=== PATIENT | female | born 1990 | race Caucasian/White ===

== ENCOUNTER 2019-10-22 09:05 | Outpatient (RCR) | payer OTHER, SELFPAY ==
[2019-10-22 09:37] VITALS: BP 124/78; PULSE 104
== END 2020-01-06 09:51 | disposition home or self-care (01) ==
LOC: ANHOBOP 09:05
PROVIDERS: PCP Family Medicine; Visit Provider Obstetrics & Gynecology
DX: O36.8120 Decreased fetal movements, second trimester, not applicable or unspecified (principal); O30.002 Twin pregnancy, unspecified number of placenta and unspecified number of amniotic sacs, second trimester; Z3A.23 23 weeks gestation of pregnancy
CPT/HCPCS: 59025

== ENCOUNTER 2019-12-23 11:39 | Outpatient (RCR) | payer OTHER, SELFPAY ==
[2019-12-17 10:42] VITALS: BP 140/80; PULSE 108
[2019-12-23 12:20] VITALS: BP 135/96; PULSE 109
== END 2020-01-06 09:51 | disposition home or self-care (01) ==
LOC: ANHOBOP 11:39
PROVIDERS: PCP Family Medicine; Visit Provider Obstetrics & Gynecology
DX: O30.003 Twin pregnancy, unspecified number of placenta and unspecified number of amniotic sacs, third trimester (principal); Z3A.31 31 weeks gestation of pregnancy; Z3A.32 32 weeks gestation of pregnancy
CPT/HCPCS: 59025

== ENCOUNTER 2019-12-26 19:12 | Inpatient (IN) | payer OTHER, SELFPAY ==
--- NOTE | ~2019-12-26 | XR_ITS ---
XR chest 2V INDICATION: Shortness of breath, cough and fever TECHNIQUE: 2 view chest. FINDINGS: No prior studies for comparison. There is mild bilateral interstitial prominence and peribronchial cuffing. There is no focal consoli dation, pleural effusion, or pneumothorax. The cardiomediastinal silhouette is normal.] IMPRESSION: 1. Findings most consistent with bronchiolitis versus an atypical or viral pneumonia. Reviewed, dictated and finalized at location A. IMPRESSION: 1. Findings most consistent with bronchiolitis versus an atypical or viral pne [facility].
--- NOTE | ~2019-12-26 | CT_ITS ---
EXAMINATION: CTA chest PE protocol DATE: 12/26/2019 22:31 CDT INDICATION: Shortness of breath. Cough and fever TECHNIQUE: Computed tomographic angiography (CTA) of the chest was performed with 100 mL Omnipaque-35 0 intravenous contrast. The dose-length product was 398.26 mGy-cm. Maximum intensity projection 3D-re constructions of the aorta and other arteries were constructed by the technologist on a separate work station. COMPARISON: None. FINDINGS: The study is technically limited due to timing of contrast bolus and motion artifact. Evalu ation of the lower lobe segmental and subsegmental pulmonary arteries limited. No definite pulmonary embolism identified. There are moderate bilateral pleural effusions with underlying compressive atele ctasis. Heart size is normal. There are multiple patchy groundglass opacities throughout both lungs, most likely infectious. No significant pericardial effusion. No pneumothorax. No acute osseous abnorm ality. IMPRESSION: 1. Patchy groundglass opacities in both lungs, consistent with pneumonia. 2: Moderate bilateral pleural effusions with underlying compressive atelectasis. 3: No large central pulmonary embolism. Limited evaluation of lower lobe segmental and subsegmental pulmonary arteries due to contrast bolus timing and motion. Reviewed, dictated and finalized at location A. IMPRESSION: 1. Patchy groundglass opacities in both lungs, consistent with pneumonia. 2: Moderate bilateral pleural effusions with underlying compressive atelectasi s. 3: No large central pulmonary embolism. Limited evaluation of lower lobe segme ntal and subsegmental pulmonary arteries due to contrast bolus timing and motio n.
[2019-12-26 19:20] VITALS: BP 155/99; PULSE 139; RESP 20; TEMP 38.1; O2SAT 96
[2019-12-26 19:49] VITALS: RESP 20; O2SAT 96
--- NOTE | 2019-12-26 19:59 | ED.FEVER ---
HPI - Fever General Chief Complaint: Fever Stated Complaint: fever, Time Seen by Provider: 12/26/19 19:36 Source: patient Mode of arrival: wheelchair Limitations: no limitations History of Present Illness HPI Narrative: A 29 y/o female pt that is 33 weeks with her first , presents to the ED after being seen in OB, with c/o SOB x 1 month that is worse today. Pt notes that walking short distances worsens her SOB and she notices audible wheezing. Pt notes increased SOB when lying supine. She states that she has congestion and coughing at night when sleeping, but notes that she has had this throughout her entire . She has a fever of 100.5F in the ED, but denies having sore throat, increased leg swelling, ear pressure, or ear pain. Pt notes a hx of Hyperemesis gravidarum and states she had a PICC line placed for 3 months and was unable to sit up. She states that she was Dx with bronchitis and prescribed Zithromax Z-Sonny within the last few months. Pt notes that she is able to feel both babies move, and denies leaking any vaginal fluid. Her OBGYN is Dr. Shantel Luciano MD elicited complaint: fever and other (SOB) Onset (ago): month(s) (1) Measured temperature: 100.5 F Context: other (Hyperemesis gravidarum) Exacerbating factors: at night and other (lying supine) Associated symptoms: cough (at night), shortness of breath and other (congestion at night) Related Data Allergies Allergy/AdvReac Type Severity Reaction Status Date / Time Penicillins Allergy Unknown Rash Verified 12/26/19 19:47 Pertussis Vaccines AdvReac Severe Fever Verified 12/26/19 19:48 Review of Systems Review of Systems: All systems reviewed & are unremarkable except as noted in HPI and below Constitutional: Constitutional: Reports fever(s) (100.5F) ENT: Denies otalgia, Denies sore throat and Denies other (ear pressure) Cardiovascular: Cardiovascular: Denies pedal edema, Denies leg edema and Reports orthopnea Respiratory: Respiratory: Reports chest congestion (at night), Reports cough (at night), Reports dyspnea, Reports dyspnea on exertion and Reports wheezing (when walking ) PMFSH Past Medical History Medical History (Updated 12/26/19 @ 23:58 by Zander Leroy MD) Hyperemesis gravidarum Surgical History Surgical History (Updated 12/26/19 @ 21:30 by Micheal WebbRUSBASE) No significant past surgical history Family History Family History (Updated 09/09/18 @ 15:24 by DOCTOR UNKNOWN) Grandparent Diabetes mellitus Family history of cardiovascular disease Father Family history of hypercholesterolemia Depression Sibling Depression Other Family history of malignant neoplasm of breast Social History Social History Smoking status: Never smoker Alcohol intake: current Gender identity (if verbalized by the patient): Female Exam Narrative: Exam Narrative: GENERAL: ill-appearing, well-nourished, and in mild distress. HEAD: Normocephalic, atraumatic. ENT: Mucous membranes moist. No pharyngeal erythema or tonsillar exudate. NECK: Supple. CHEST: Tachypnea with splinting while breathing and frequent coughing. Basilar Rales that are diminished. Occasional scattered wheezing. HEART: Tachycardic. Normal peripheral pulses. ABDOMEN: Soft, nontender, nondistended. EXTREMITIES: Normal range of motion. No edema in lower extremities. 1+ edema right upper extremity. SKIN: Warm, dry, no rash. NEURO: Alert and oriented x3. Course Course Emergency Course: Patient informed of diagnosis and treatment plan. Respirations improving with hour-long nebulizer treatment. Patient still has elevated blood pressures which OB is been made aware of. Will arrange for monitoring as well. Tylenol for fever. Patient receiving IV potassium for hypokalemia. Consultations Consultation #1: Discussed case with SHASHANK Anne electrical high tension tester. Suggest CTA, starting pt on IV antibiotics
[2019-12-26 20:21] LABS: INR 0.9; Prothrombin Time 12.3 Seconds (11.1-14.7)
[2019-12-26 20:26] LABS: Alanine Aminotransferase 13 U/L (4-35); Albumin Level 3.1 g/dL (3.5-5.1); Alkaline Phosphatase 108 U/L (38-126); Aspartate Amino Transferase 22 U/L (14-36); Bilirubin,Total 0.6 mg/dL (0.2-1.3); Blood Urea Nitrogen < 2 mg/dL (7-17); Calcium 8.9 mg/dL (8.4-10.2); Carbon Dioxide 20 mmol/L (22-30); Chloride 109 mmol/L (98-107); Estimated CRCL calculation 159 ml/min; Estimated Glomerular Filt Rate > 60; Glucose 78 mg/dL (65-105); Partial Thromboplastin Time < 20.0 SECONDS (22.3-36.8); Potassium 2.7 mmol/L (3.4-5.0); Sodium 134 mmol/L (137-145)
--- NOTE | 2019-12-26 20:26 | PC.NURSE ---
Called lab to add on BNP
[2019-12-26 20:38] LABS: Basophils Absolute Auto 0.1 K/mm3 (0.0-0.1); Basophils Percent Auto 0.3 % (0.2-1.2); Eosinophils Absolute Auto 0.1 K/mm3 (0-0.3); Eosinophils Percent Auto 0.5 % (0-4.4); Hemoglobin 9.4 g/dL (12.0-15.0); Immature Granulocyte Absolute 0.14 K/mm3 (0.00-0.031); Immature Granulocyte Percent A 0.8 % (0-0.5); Lymphocytes Absolute Auto 2.73 K/mm3 (0.9-3.2); Mean Corpuscular HGB Conc 34.8 g/dl (32-36); Mean Corpuscular Hemoglobin 30.6 pg (26-34); Mean Corpuscular Volume 87.9 fl (80-100); Mean Platelet Volume 10.8 fl (7.4-10.4); Monocytes Absolute Auto 1.5 K/mm3 (0.1-0.6); Monocytes Percent Auto 8.6 % (2.6-8.5); Neutrophils Absolute Auto 12.6 K/mm3 (1.3-6.7); Neutrophils Percent Auto 73.8 % (45.5-73.1); Platelet Count Result 198 k/mm3 (150-375); Red Blood Count 3.07 M/mm3 (4.2-5.4); Red Cell Distribution Width 13.7 % (11.5-14.5); White Blood Count 17.1 K/mm3 (4.5-10.0)
[2019-12-26 20:43] LABS: NT Pro B Type Natriuretic Pept 1960 PG/ML (5-100)
[2019-12-26 21:03] VITALS: PULSE 126; RESP 22; O2SAT 98
[2019-12-26] MEDS: IPRATROPIUM BR 0.02% INH SOLN 0.5 MG/2.5 ML VIAL 1 MG INHALATION (21:03)
[2019-12-26] MEDS: ALBUTEROL SULFATE NEB 2.5 MG/0.5 ML INH 10 MG INHALATION (21:03)
[2019-12-26 21:10] VITALS: BP 161/113; PULSE 115; RESP 20; O2SAT 100
--- NOTE | 2019-12-26 21:50 | PC.NURSE ---
lr not given per md verbal request
[2019-12-26 21:51] VITALS: BP 152/95; PULSE 125; RESP 24; O2SAT 100
[2019-12-26 21:57] VITALS: PULSE 122; RESP 24
[2019-12-26] MEDS: SODIUM CHLORIDE 0.9% IV 1,000 ML 30 ML IV CONT (23:03)
[2019-12-27] VITALS (19 sets, daily range): BP systolic 135–150; BP diastolic 75–108; PULSE 112–152; RESP 18–24; TEMP 36.7–37.2; O2SAT 96–99; BMI 34.7
--- NOTE | 2019-12-27 | ECHO_ITS ---
Patient Info Name: Mary Leong Age: 29 years : 1990 Gender: Female Ht: 66 in Wt: 204 lbs BSA: 2.11 m2 HR: 117 bpm BP: 136 / 75 mmHg Technical Quality: Good Exam Date: 12/27/2019 2:02 PM Exam Location: [facility] Pulmonary Exam Room: 303 Patient Status: Inpatient Admit Date: 12/26/2019 Staff Ordering Physician: Donald Barnes MD Cabin Equipment Supervisor: Bree Walls RDCS Attending Provider: Donald Barnes MD Exam Type: CA echo doppler color flow Study Info Indications - elevated BNP 33 WEEKS GESTATION Complete two-dimensional, color flow and Doppler transthoracic echocardiogram is performed. Summary 1. The left ventricle is mildly dilated (5.7-6.2 cm). There is moderate to moderately severe global hypokinesis. The measured ejection fraction is 47%, though visually it appears to be in the range of 35-40%. No segmental wall motion abnormalities. Normal wall thickness. Borderline criteria for diastolic dysfunction. 2. Left atrial chamber dimension is moderately enlarged. 3. There is mild mitral valve regurgitation. 4. Mild pulmonary hypertension, estimated pulmonary arterial systolic pressure is 40 mmHg. 5. There is a trivial posterior pericardial effusion, 0.5 cm thick. 6. Normal sinus rhythm. Left Ventricle Left ventricular chamber dimension is mildly enlarged. Left ventricular systolic function is moderately reduced, estimated at 35-40%. There is no increased left ventricular wall thickness. Left ventricular septal wall motion is normal. The left ventricular diastolic function is abnormal. The left ventricle is mildly dilated (5.7-6.2 cm). There is moderate to moderately severe global hypokinesis. The measured ejection fraction is 47%, though visually it appears to be in the range of 35-40%. No segmental wall motion abnormalities. Normal wall thickness. Borderline criteria for diastolic dysfunction. Right Ventricle Right ventricular chamber dimension is normal. Right ventricular systolic function is normal. Left Atria Left atrial chamber dimension is moderately enlarged. Right Atria Right atrial chamber dimension is normal. Aortic Valve The aortic valve is trileaflet. There is no aortic valve sclerosis. There is no aortic valve stenosis. There is no aortic valve regurgitation. Pulmonic Valve The pulmonic valve is normal. There is no pulmonic valve stenosis. There is no pulmonic regurgitation. Mitral Valve The mitral valve has normal leaflets. There is no mitral valve stenosis. There is mild mitral valve regurgitation. Tricuspid Valve The tricuspid valve leaflets are normal. There is no significant tricuspid valve stenosis. There is trace tricuspid valve regurgitation. Mild pulmonary hypertension, estimated pulmonary arterial systolic pressure is 40 mmHg. Pericardium/Pleural The pericardium appears normal. There is a trivial posterior pericardial effusion, 0.5 cm thick. Inferior Vena Cava Normal inferior vena cava with >50% collapse upon inspiration consistent with Empty right atrial pressure, 10 mmHg. Aorta The aortic root size at the sinus of Valsalva is normal. The prox ascending aorta size is normal. Left Ventricular Outflow Tract Name Value Normal LVOT 2D
[2019-12-27] MEDS: ONDANSETRON INJ 4 MG/2 ML VIAL IV PUSH ×4 (00:32→20:24)
--- NOTE | 2019-12-27 00:39 | ADMGEN ---
This patient, Mary Leong, was admitted to [facility] Surg Room 303-01. Patient/family oriented to hospital policies and general routines including ID bracelet, bed and alarms, visiting hours, pain management, procedures, bathroom and other care routines, personal items, smoking policy, room service/diet, and visiting hours. Valuables list has been completed. Information on how to activate the Rapid Response Team has been discussed. Patient/Family are encouraged to report perceived risks to care and to ask questions if they do not understand what they are told or what they should do.
[2019-12-27 01:18] LABS: Add Urine Microscopic? YES; Appearance Urine Clear (Clear); Bilirubin Urine Negative (Negative); Blood Urine Negative (Negative); Color Urine Yellow (Yellow); Glucose Urine UA Negative (Negative); Ketones Urine 2+ mg/dL (Negative); Leukocyte Esterase Ur Negative LEU/UL (Negative); Mucus Urine Rare /lpf; Nitrate Urine Negative (Negative); Protein Urine 1+ mg/dL (Negative); RBC Urine 0-2 /hpf (0-2); Squamous Epithelial Cell Urine Occasional /hpf (Few); Urobilinogen Urine Negative mg/dL (<2.0); WBC Urine 0-3 /hpf
--- NOTE | 2019-12-27 02:21 | PC.NURSE ---
LATE NOTE- 0001 PT'S VITAL SIGNS 28 RESP, 120 HEART RATE, 158/92 BP-ROCEPHIN INFUSED, ZITHROMAX STARTED. IV SITES BILATERALLY INTACT WNL
[2019-12-27] MEDS: IPRATROPIUM BR 0.02% INH SOLN 0.5 MG/2.5 ML VIAL INHALATION ×4 (02:59→20:22)
[2019-12-27] MEDS: ALBUTEROL SULFATE NEB 2.5 MG/0.5 ML INH 5 MG INHALATION ×2 (02:59→08:13)
--- NOTE | 2019-12-27 03:38 | PC.NURSE ---
1250- Nurse from 3rd floor called to have heart tones doppled. Arrived on unit and doppled FHT for Baby A- 150s with accels to 180s, Baby B-130s with accels to 150s. Nurse informed of FHTs.
--- NOTE | 2019-12-27 08:23 | PM.IMHP ---
H&P: HPI History of Present Illness Chief complaint: PNEUMONIA,ELEVATED BLOOD PRESSURE READING,PLEURAL Narrative: Mary Leong is a 29 year old female at 33w with twin gestation who presented with acute onset SOB and fever. Pt states she has had SOB for the past month or so but it became worse yesterday morning. She denies any tactile fevers at home. She reports a dry cough. She denies any CP. She denies any sick contacts or recent travel. She endorses good movement x2. She denies any contractions, vaginal bleeding or leakage of fluid. Pt was evaluated in the ER last night and CXR was suggestive of pneumonia. CTPA was performed which was negative for PE. Pt states her symptoms have mildly improved this AM. She still reports a cough but states her SOB has improved. Review of Systems Constitutional: Constitutional: Reports as per HPI Cardiovascular: Cardiovascular: Reports as per HPI Respiratory: Respiratory: Reports as per HPI Gastrointestinal: Gastrointestinal: Denies abdominal pain, Denies constipation, Denies diarrhea, Denies nausea and Denies vomiting Genitourinary: Genitourinary: Reports no additional female genitourinary complaints [facility] Past Medical History Medical History (Updated 12/27/19 @ 09:07 by Donald Barnes MD) Hyperemesis gravidarum Surgical History Surgical History (Updated 12/26/19 @ 21:30 by Micheal WebbBiorasis) No significant past surgical history Family History Family History (Updated 09/09/18 @ 15:24 by DOCTOR UNKNOWN) Grandparent Diabetes mellitus Family history of cardiovascular disease Father Family history of hypercholesterolemia Depression Sibling Depression Other Family history of malignant neoplasm of breast Social History Social History Smoking status: Never smoker Alcohol intake: former Drinks per week: 1 Substance use: never Gender identity (if verbalized by the patient): Female Spiritual care concerns: No Agree to blood products: Yes Meds Home Medications and Allergies Home Medications Medication Instructions Recorded Confirmed Type cetirizine [Zyrtec] 10 mg PO DAILY 12/27/19 12/27/19 History famotidine [Heartburn Relief 10 mg PO BID 12/27/19 12/27/19 History (famotidine)] ondansetron 4 mg TRANSLINGUAL Q6-8H PRN 12/27/19 12/27/19 History Allergies Allergy/AdvReac Type Severity Reaction Status Date / Time Penicillins Allergy Unknown Rash Verified 12/26/19 19:47 Pertussis Vaccines AdvReac Severe Fever Verified 12/26/19 19:48 Vital Signs Vital Signs - 24 hr 12/26/19 19:20 12/26/19 19:49 12/26/19 21:03 Temperature 38.1 C H Pulse Rate 139 H 126 H Respiratory Rate 20 20 22 H Blood Pressure 155/99 H Pulse Oximetry 96 96 98 12/26/19 21:10 12/26/19 21:51 12/26/19 21:57 Temperature Pulse Rate 115 H 125 H 122 H Respiratory Rate 20 24 H 24 H Blood Pressure 161/113 H 152/95 H Pulse Oximetry 100 100 12/27/19 00:15 12/27/19 02:59 12/27/19 03:10 Temperature 36.7 C Pulse Rate 141 H 129 H 125 H Respiratory Rate 24 H 20 20 Blood Pressure 149/108 H 150/90 H Pulse Oximetry 99 12/27/19 04:00 12/27/19 06:00 12/27/19 08:13 Temperature 36.7 C Pulse Rate 125 H 129 H 135 H Respiratory Rate 22 H 18 Blood Pressure 135/75 Pulse Oximetry 96 Exam Const: General: comfortable and no acute distress Eyes: General: appearance normal, both eyes and all related structures Neck: Neck: no JVD Resp: Auscultation: rales, wheezes and diminished lung sounds Cardio: Rate: tachycardic GI: GI Palp: Yes Soft to palpation and No Tenderness to palpation present (GI) Auscultation: normal bowel sounds Other: Gravid, fundal height equal to dates Skin: General skin exam: normal color Extrem: General: normal to inspection Psych: Mental Status: mental status grossly normal Affect: normal affect H&P: Results Labs Labs: Short CBC
[2019-12-27 10:47] LABS: Basophils Percent Auto 0.1 % (0.2-1.2); Eosinophils Percent Auto 0.2 % (0-4.4); Hematocrit 25.5 % (37.0-47.0); Hemoglobin 8.8 g/dL (12.0-15.0); Immature Granulocyte Absolute 0.18 K/mm3 (0.00-0.031); Lymphocytes Absolute Auto 2.15 K/mm3 (0.9-3.2); Lymphocytes Percent Auto 12.3 % (18.3-44.2); Mean Corpuscular HGB Conc 34.5 g/dl (32-36); Mean Corpuscular Hemoglobin 30.1 pg (26-34); Mean Corpuscular Volume 87.3 fl (80-100); Mean Platelet Volume 10.9 fl (7.4-10.4); Monocytes Absolute Auto 1.4 K/mm3 (0.1-0.6); Monocytes Percent Auto 8.2 % (2.6-8.5); Neutrophils Absolute Auto 13.7 K/mm3 (1.3-6.7); Neutrophils Percent Auto 78.2 % (45.5-73.1); Platelet Count Result 202 k/mm3 (150-375); Red Blood Count 2.92 M/mm3 (4.2-5.4); Red Cell Distribution Width 13.9 % (11.5-14.5); White Blood Count 17.5 K/mm3 (4.5-10.0)
[2019-12-27 10:58] LABS: Alanine Aminotransferase 15 U/L (4-35); Alkaline Phosphatase 101 U/L (38-126); Aspartate Amino Transferase 22 U/L (14-36); Bilirubin,Total 0.4 mg/dL (0.2-1.3); Blood Urea Nitrogen 3 mg/dL (7-17); Calcium 9.1 mg/dL (8.4-10.2); Carbon Dioxide 20 mmol/L (22-30); Chloride 108 mmol/L (98-107); Estimated CRCL calculation 163 ml/min; Estimated Glomerular Filt Rate > 60; Glucose 93 mg/dL (65-105); Potassium 2.9 mmol/L (3.4-5.0); Sodium 134 mmol/L (137-145)
[2019-12-27 11:07] LABS: NT Pro B Type Natriuretic Pept 1750 PG/ML (5-100)
[2019-12-27] MEDS: METOPROLOL SUCCINATE EXT REL 50 MG TABCR PO (13:35)
--- NOTE | 2019-12-27 13:48 | PM.IMCN ---
Assessment and Plan Assessment and plan (1) Community acquired pneumonia: Qualifiers: Laterality: unspecified laterality Qualified Code(s): J18.9 - Pneumonia, unspecified organism Code(s): J18.9 - Pneumonia, unspecified organism Status: Acute Assessment and Plan: I thank [facility] for this consult. There is no further need for any further consultation at this point. The patient is currently being treated appropriately for community-acquired pneumonia. She is currently on room air. In the event that the patient is discharged to home tomorrow she could be transitioned to p.o. amoxicillin and azithromycin. The patient is currently on room air. However I did change her albuterol nebulizer treatment to Xopenex. The patient has inappropriate sinus tachycardia historically. She typically does not get treated for her inappropriate sinus tachycardia. Sputum and blood cultures are pending. Her white count is elevated 17.1. Repeat labs are ordered for the morning. (2) Anemia: Code(s): D64.9 - Anemia, unspecified Status: Acute Assessment and Plan: Patient's hemoglobin is lower than her normal. Anemia profile would be appropriate to check at this time. She has no signs and symptoms of any bleeding. (3) Acute hypokalemia: Code(s): E87.6 - Hypokalemia Status: Acute Assessment and Plan: Repeat labs in the morning and I did supplement her with potassium just now. (4) Elevated brain natriuretic peptide (BNP) level: Code(s): R79.89 - Other specified abnormal findings of blood chemistry Status: Acute Assessment and Plan: She was unable to have 3D echo performed due to her inappropriate sinus tachycardia. However a 2D limited echo was found to be more appropriate which was ordered just now. (5) Twin gestation in third trimester: Code(s): O30.003 - Twin , unspecified number of placenta and unspecified number of amniotic sacs, third trimester Status: Acute Assessment and Plan: All care related to her twin gestation to [facility]. (6) Inappropriate sinus tachycardia: Code(s): R00.0 - Tachycardia, unspecified Status: Chronic Assessment and Plan: Patient's heart rate is typically in the 120s however she has 140s here. I did change her albuterol to Xopenex. HPI Data of Consult Consult date: 12/27/19 Requesting Physician: David Madden MD Primary Care Provider: Celso Briggs MD Consult Narrative Narrative: Mary Leong is a 29 year old female who is 1 para 0. She is 33 weeks gestation with a twin . Initially in her she had hyper emesis gravidarum. The patient stated that she is had a difficult and that she has been short of breath most of the specially with the twins. However she has been having a cough and wheezing. She gets short of breath with minimal movement. Earlier in her she did have a PICC line for they hyperemesis gravidarum. There was some concern surrounding a possibility of a PE and a CTA was ordered per OBGYN. It was negative for a PE. However the CTA did show patchy ground-glass opacities in both lungs consistent with pneumonia. Moderate bilateral pleural effusions with underlining compressive atelectasis. No large central pulmonary embolism. Patient was started on azithromycin and Rocephin. Patient also has a history of inappropriate tachycardia and her heart rates typically in the 120s. She is not typically medicated for her fast heart rate. With the neb treatments her heart rate has been getting up in the 140s. An echo had been ordered due to an elevated BNP and the pulmonary edema was showing on the CT a as well. A regular echo was not able to be obtained at this time due to her fast heart rate. It was suggested that a 2D echo limited be performed and that was ordered at this time. She has no swelling in her feet at this time but t
[2019-12-27] MEDS: POTASSIUM CHLORIDE 20 MEQ TABLET 40 MEQ PO (14:53)
[2019-12-27] MEDS: LORATADINE 10 MG TABLET PO (14:54)
[2019-12-27] MEDS: FAMOTIDINE 10 MG TABLET PO (17:48)
--- NOTE | 2019-12-27 20:02 | PC.NURSE ---
FHT's Baby A 150-155's and Baby B 145-150's. Pt feeling movements
[2019-12-27] MEDS: DIGOXIN INJ 250 MCG/ML 2 ML AMP (*BKC) IV PUSH (20:23)
[2019-12-28] VITALS (22 sets, daily range): BP systolic 118–144; BP diastolic 57–88; PULSE 100–129; RESP 18–22; TEMP 36.4–37.2; O2SAT 96–100
[2019-12-28] MEDS: IPRATROPIUM BR 0.02% INH SOLN 0.5 MG/2.5 ML VIAL INHALATION ×4 (02:01→21:30)
[2019-12-28] MEDS: DIGOXIN INJ 250 MCG/ML 2 ML AMP (*BKC) IV PUSH ×4 (02:22→20:26)
[2019-12-28 06:16] LABS: Basophils Absolute Auto 0.1 K/mm3 (0.0-0.1); Basophils Percent Auto 0.4 % (0.2-1.2); Eosinophils Absolute Auto 0.2 K/mm3 (0-0.3); Eosinophils Percent Auto 1.1 % (0-4.4); Hematocrit 25.1 % (37.0-47.0); Hemoglobin 8.5 g/dL (12.0-15.0); Immature Granulocyte Absolute 0.17 K/mm3 (0.00-0.031); Immature Granulocyte Percent A 1.1 % (0-0.5); Lymphocytes Percent Auto 18.4 % (18.3-44.2); Mean Corpuscular HGB Conc 33.9 g/dl (32-36); Mean Corpuscular Hemoglobin 30.1 pg (26-34); Mean Platelet Volume 10.9 fl (7.4-10.4); Monocytes Absolute Auto 1.3 K/mm3 (0.1-0.6); Monocytes Percent Auto 8.4 % (2.6-8.5); Neutrophils Absolute Auto 11.2 K/mm3 (1.3-6.7); Neutrophils Percent Auto 70.6 % (45.5-73.1); Platelet Count Result 200 k/mm3 (150-375); Red Blood Count 2.82 M/mm3 (4.2-5.4); Red Cell Distribution Width 13.8 % (11.5-14.5); White Blood Count 15.8 K/mm3 (4.5-10.0)
[2019-12-28 06:18] LABS: Immature Reticulocyte Fraction 25.3 % (3.0-15.9); Reticulocyte Hemoglobin Conten 34.7 pg (28.2-35.7); Reticulocyte Percent 4.49 % (0.7-4.3); Reticulocytes Absolute 0.12 B/L (32.2-175.7)
[2019-12-28 06:31] LABS: Alanine Aminotransferase 13 U/L (4-35); Albumin Level 2.6 g/dL (3.5-5.1); Alkaline Phosphatase 95 U/L (38-126); Aspartate Amino Transferase 21 U/L (14-36); Bilirubin,Total 0.4 mg/dL (0.2-1.3); Blood Urea Nitrogen 4 mg/dL (7-17); Calcium 8.5 mg/dL (8.4-10.2); Carbon Dioxide 20 mmol/L (22-30); Chloride 108 mmol/L (98-107); Estimated CRCL calculation 139 ml/min; Estimated Glomerular Filt Rate > 60; Glucose 81 mg/dL (65-105); Magnesium 1.4 mg/dL (1.6-2.3); Sodium 137 mmol/L (137-145)
[2019-12-28 06:40] LABS: Iron 59 ug/dL (37-170)
[2019-12-28 06:50] LABS: Percent Iron Saturation 13 % (20-50)
--- NOTE | 2019-12-28 07:18 | PM.OBPNVD ---
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 Pt underwent Echo yesterday that showed a dilated L ventricle and EF aroun 47%. Pt medical history is complicated by OB - PN: Obj Data Labs CBC & Chem 7: 12/28/19 05:35 12/28/19 05:35 Labs: Laboratory Results - last 24 hr 12/27/19 12/27/19 12/28/19 10:32 10:32 05:35 WBC 17.5 H RBC 2.92 L Hgb 8.8 L Hct 25.5 L MCV 87.3 MCH 30.1 MCHC 34.5 RDW 13.9 Plt Count 202 MPV 10.9 H Immature Gran % (Auto) 1.0 H Neut % (Auto) 78.2 H Lymph % (Auto) 12.3 L [place] % (Auto) 8.2 Eos % (Auto) 0.2 Baso % (Auto) 0.1 L Lymph # (Auto) 2.15 [place] # (Auto) 1.4 H Eos # (Auto) 0.0 Baso # (Auto) 0.0 Abs Immat Gran (auto) 0.18 H Absolute Neuts (auto) 13.7 H Absolute Nucleated RBC 0.0 Nucleated RBC % 0.0 Absolute Retic 0.12 L Percent Retic 4.49 H Immature Retic Fraction 25.3 H Retic Hgb Content 34.7 Sodium 134 L Potassium 2.9 L Chloride 108 H Carbon Dioxide 20 L BUN 3 L Creatinine 0.50 L Estim Creat Clear Calc 163 Estimated GFR > 60 Glucose 93 Calcium 9.1 Magnesium Iron TIBC % Saturation Ferritin Total Bilirubin 0.4 AST 22 ALT 15 Alkaline Phosphatase 101 NT-Pro-B Natriuret Pep 1750 H Total Protein 6.0 L Albumin 3.0 L TSH (Reflex) 12/28/19 12/28/19 12/28/19 05:35 05:35 05:35 WBC 15.8 H RBC 2.82 L Hgb 8.5 L Hct 25.1 L MCV 89.0 MCH 30.1 MCHC 33.9 RDW 13.8 Plt Count 200 MPV 10.9 H Immature Gran % (Auto) 1.1 H Neut % (Auto) 70.6 Lymph % (Auto) 18.4 [place] % (Auto) 8.4 Eos % (Auto) 1.1 Baso % (Auto) 0.4 Lymph # (Auto) 2.90 [place] # (Auto) 1.3 H Eos # (Auto) 0.2 Baso # (Auto) 0.1 Abs Immat Gran (auto) 0.17 H Absolute Neuts (auto) 11.2 H Absolute Nucleated RBC 0.0 Nucleated RBC % 0.0 Absolute Retic Percent Retic Immature Retic Fraction Retic Hgb Content Sodium 137 Potassium 3.0 L Chloride 108 H Carbon Dioxide 20 L BUN 4 L Creatinine 0.60 L Estim Creat Clear Calc 139 Estimated GFR > 60 Glucose 81 Calcium 8.5 Magnesium 1.4 L Iron 59 TIBC 466 H % Saturation 13 L Ferritin 26.60 Total Bilirubin 0.4 AST 21 ALT 13 Alkaline Phosphatase 95 NT-Pro-B Natriuret Pep Total Protein 5.0 L Albumin 2.6 L TSH (Reflex) 12/28/19 05:35 WBC RBC Hgb Hct MCV MCH MCHC RDW Plt Count MPV Immature Gran % (Auto) Neut % (Auto) Lymph % (Auto) [place] % (Auto) Eos % (Auto) Baso % (Auto) Lymph # (Auto) [place] # (Auto) Eos # (Auto) Baso # (Auto) Abs Immat Gran (auto) Absolute Neuts (auto) Absolute Nucleated RBC Nucleated RBC % Absolute Retic Percent Retic Immature Retic Fraction Retic Hgb Content Sodium Potassium Chloride Carbon Dioxide BUN Creatinine Estim Creat Clear Calc Estimated GFR Glucose Calcium Magnesium Iron TIBC % Saturation Ferritin Total Bilirubin AST ALT Alkaline Phosphatase NT-Pro-B Natriuret Pep Total Protein Albumin TSH (Reflex) 1.360 OB - PN A/P Time Spent With Patient Time: Total time spent is greater than 50% in coordination of care (as documented) at patient's floor/unit and/or counseling patient:
--- NOTE | 2019-12-28 07:21 | PM.OBPNVD ---
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 Pt underwent Echo yesterday that showed a dilated L ventricle and EF aroun 47%. Pt medical history is complicated by inappropriate sinus tachycardia. Pt reports mild improvement in her symptoms this AM. She reports her SOB is worse with coughing. She denies any fevers or chills. She denies any CP or palpitations. Patient was able to get more sleep last night. Patient comments: no complaints OB - PN: Obj Data Labs CBC & Chem 7: 12/28/19 05:35 12/28/19 05:35 Labs: Laboratory Results - last 24 hr 12/27/19 12/27/19 12/28/19 10:32 10:32 05:35 WBC 17.5 H RBC 2.92 L Hgb 8.8 L Hct 25.5 L MCV 87.3 MCH 30.1 MCHC 34.5 RDW 13.9 Plt Count 202 MPV 10.9 H Immature Gran % (Auto) 1.0 H Neut % (Auto) 78.2 H Lymph % (Auto) 12.3 L [place] % (Auto) 8.2 Eos % (Auto) 0.2 Baso % (Auto) 0.1 L Lymph # (Auto) 2.15 [place] # (Auto) 1.4 H Eos # (Auto) 0.0 Baso # (Auto) 0.0 Abs Immat Gran (auto) 0.18 H Absolute Neuts (auto) 13.7 H Absolute Nucleated RBC 0.0 Nucleated RBC % 0.0 Absolute Retic 0.12 L Percent Retic 4.49 H Immature Retic Fraction 25.3 H Retic Hgb Content 34.7 Sodium 134 L Potassium 2.9 L Chloride 108 H Carbon Dioxide 20 L BUN 3 L Creatinine 0.50 L Estim Creat Clear Calc 163 Estimated GFR > 60 Glucose 93 Calcium 9.1 Magnesium Iron TIBC % Saturation Ferritin Total Bilirubin 0.4 AST 22 ALT 15 Alkaline Phosphatase 101 NT-Pro-B Natriuret Pep 1750 H Total Protein 6.0 L Albumin 3.0 L TSH (Reflex) 12/28/19 12/28/19 12/28/19 05:35 05:35 05:35 WBC 15.8 H RBC 2.82 L Hgb 8.5 L Hct 25.1 L MCV 89.0 MCH 30.1 MCHC 33.9 RDW 13.8 Plt Count 200 MPV 10.9 H Immature Gran % (Auto) 1.1 H Neut % (Auto) 70.6 Lymph % (Auto) 18.4 [place] % (Auto) 8.4 Eos % (Auto) 1.1 Baso % (Auto) 0.4 Lymph # (Auto) 2.90 [place] # (Auto) 1.3 H Eos # (Auto) 0.2 Baso # (Auto) 0.1 Abs Immat Gran (auto) 0.17 H Absolute Neuts (auto) 11.2 H Absolute Nucleated RBC 0.0 Nucleated RBC % 0.0 Absolute Retic Percent Retic Immature Retic Fraction Retic Hgb Content Sodium 137 Potassium 3.0 L Chloride 108 H Carbon Dioxide 20 L BUN 4 L Creatinine 0.60 L Estim Creat Clear Calc 139 Estimated GFR > 60 Glucose 81 Calcium 8.5 Magnesium 1.4 L Iron 59 TIBC 466 H % Saturation 13 L Ferritin 26.60 Total Bilirubin 0.4 AST 21 ALT 13 Alkaline Phosphatase 95 NT-Pro-B Natriuret Pep Total Protein 5.0 L Albumin 2.6 L TSH (Reflex) 12/28/19 05:35 WBC RBC Hgb Hct MCV MCH MCHC RDW Plt Count MPV Immature Gran % (Auto) Neut % (Auto) Lymph % (Auto) [place] % (Auto) Eos % (Auto) Baso % (Auto) Lymph # (Auto) [place] # (Auto) Eos # (Auto) Baso # (Auto) Abs Immat Gran (auto) Absolute Neuts (auto) Absolute Nucleated RBC Nucleated RBC % Absolute Retic Percent Retic Immature Retic Fraction Retic Hgb Content Sodium Potassium Chloride Carbon Dioxide BUN Creatinine Estim Creat Clear Calc Estimated GFR Glucose Calcium Magnesium Iron TIBC % Saturation Ferritin Total Bilirubin AST ALT Alkaline Phosphatase NT-Pro-B Natriuret Pep Total Protein Albumin TSH (Reflex) 1.360 OB - PN A/P Assessment and Plan (1) Acute hypokalemia: Code(s): E87.6 - Hypokalemia Status: Acute Assessment and Plan: K+ improved from 2.7-2.9 will continue to replace (2) Elevated blood pressure reading: Code(s): R03.0 - Elevated blood-pressure reading, without diagno
[2019-12-28 07:46] LABS: Folic Acid > 20.0 ng/mL (2.76->20)
[2019-12-28] MEDS: ONDANSETRON INJ 4 MG/2 ML VIAL IV PUSH ×2 (07:49→17:03)
[2019-12-28 07:59] LABS: Digoxin 0.6 ng/mL (0.8-2.0)
--- NOTE | 2019-12-28 08:55 | WPDCN ---
Assessment and Plan Assessment and plan (1) Peripartum cardiomyopathy: Code(s): O90.3 - Peripartum cardiomyopathy Status: Acute Assessment and Plan: Patient with significant MACEDO, orthopnea, pleural effusions, elevated BNP, and echocardiogram showing some mild LV enlargement with moderate hypokinesis, EF 40-47%. She appears to have a peripartum cardiomyopathy and is volume overloaded. Agree with metoprolol Agree with digoxin 0.25 IV push x4 then 0.125 mg p.o. daily (might incr to 0.25 mcg qd when off azithromycin) I believe patient needs some diuresis; will start Lasix 40 mg p.o. daily for few days and hopefully reduce the dose or eliminate it Low-salt diet, reduce fluids (since she is drinking 4-5 L a day, aim for 2-3 L a day) Office follow-up in the near future; might need hydralazine/nitrates depending on her course Likely the patient will not be able to return to work until after delivery Reviewed extensively with patient and family Recommend keeping the patient for 1 more night (2) induced hypertension: Code(s): O13.9 - Gestational [-induced] hypertension without significant proteinuria, unspecified trimester Status: Acute (3) Inappropriate sinus tachycardia: Code(s): R00.0 - Tachycardia, unspecified Status: Chronic Assessment and Plan: History of inappropriate sinus tachycardia noted in the past, aggravated by and cardiomyopathy (4) Twin gestation in third trimester: Code(s): O30.003 - Twin , unspecified number of placenta and unspecified number of amniotic sacs, third trimester Status: Acute (5) Acute hypokalemia: Code(s): E87.6 - Hypokalemia Status: Acute Assessment and Plan: Continue to supplement (6) Community acquired pneumonia: Qualifiers: Laterality: unspecified laterality Qualified Code(s): J18.9 - Pneumonia, unspecified organism Code(s): J18.9 - Pneumonia, unspecified organism Status: Acute (7) Hypomagnesemia: Code(s): E83.42 - Hypomagnesemia Status: Acute Assessment and Plan: Continue to supplement HPI Data of Consult Date/Time: 12/28/19 08:55 Requesting Physician: Donald Barnes MD Primary Care Provider: Celso Briggs MD Consult Narrative Narrative: Date of service: 12/28/2019 Mary Leong is a 29 year old female who is 33 weeks with twins, whom I was asked to see at the request of Dr. 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 The patient was admitted on December 25 complaining of increasing MACEDO over the past month, and treated for bronchitis. Her SOB became worse the few days prior to admission such as just walking across the room was causing severe dyspnea. She also has a cough minimally productive of light yellow sputum, orthopnea, some edema as well as a fever of 100.5?. She has been hypertensive and hypokalemic. No chest pain or dizziness. She has been very tachycardic, though carries a history of inappropriate sinus tachycardia. Chest x-ray showed ground-glass appearance bilaterally suggestive of pneumonia and she has been started on antibiotics. However, her echo yesterday showed moderate left ventricular dysfunction, EF measured 47%, visually 35-40% with mild LV enlargement and no significant valve disease. CT scan also showed bilateral infiltrates with pleural effusions. She has been started on metoprolol and being loaded with digoxin per Dr. Barnes. Several years ago the patient was evaluated by a front sight attacher at [facility] [employer] [facility] [employer] for inappropriate sinus tachycardia. Testing was unremarkable. She has been able to work out and exercise with no particular problems with MACEDO or chest pain but sometimes her heart rate would go up to 200 beats per minute. No hypertension, diabetes, elevated cholesterol or parents with heart disease. This is the patient's 1st
[2019-12-28] MEDS: MULTIVIT/MIN/PREN/FOL AC/IRON TABLET 1 TAB PO (10:14)
[2019-12-28] MEDS: LORATADINE 10 MG TABLET PO (10:15)
[2019-12-28] MEDS: FERROUS GLUCONATE 324 MG TABLET PO ×2 (10:15→17:03)
[2019-12-28] MEDS: FAMOTIDINE 10 MG TABLET PO ×2 (10:15→17:03)
[2019-12-28] MEDS: METOPROLOL SUCCINATE EXT REL 50 MG TABCR PO (10:16)
[2019-12-28] MEDS: FUROSEMIDE 40 MG TABLET PO (10:52)
[2019-12-28] MEDS: POTASSIUM CHLORIDE 20 MEQ TABLET.ER 40 MEQ PO (10:52)
[2019-12-28] MEDS: MAGNESIUM OXIDE 400 MG TABLET PO ×2 (10:52→17:03)
[2019-12-28 11:32] LABS: IFOB Positive Control Positive; Immunochemical Fecal Occult Bl Negative (N)
[2019-12-28] MEDS: POTASSIUM CHLORIDE 20 MEQ TABLET 40 MEQ PO (17:03)
--- NOTE | 2019-12-28 21:38 | PC.NURSE ---
Dopplered heart tones. Baby A 170's, Baby B 150's. Pt feeling movements.
[2019-12-29] VITALS (20 sets, daily range): BP systolic 140–144; BP diastolic 69–91; PULSE 100–130; RESP 18–20; TEMP 36.5–36.8; O2SAT 95–99; BMI 34.7
[2019-12-29] MEDS: IPRATROPIUM BR 0.02% INH SOLN 0.5 MG/2.5 ML VIAL INHALATION ×4 (02:30→20:22)
[2019-12-29 06:51] LABS: Blood Urea Nitrogen 4 mg/dL (7-17); Calcium 8.5 mg/dL (8.4-10.2); Carbon Dioxide 21 mmol/L (22-30); Chloride 106 mmol/L (98-107); Estimated CRCL calculation 139 ml/min; Estimated Glomerular Filt Rate > 60; Glucose 76 mg/dL (65-105); Sodium 134 mmol/L (137-145)
--- NOTE | 2019-12-29 07:36 | PM.OBPNVD ---
OB - PN: Subj Subjective Date/time seen: 12/29/19 07:36 Interval history: Mary Leong is a 29 yo F at 33w with twin gestation admitted for community acquired pneumonia and peripartum cardiomyopathy. Pt Echo showed a dilated L ventricle and EF around 47%. Pt medical history is complicated by inappropriate sinus tachycardia. Pt was seen by cardiology yesterday. Pt now getting lasix daily, reports improvement with breathing. pt states she still has coughing in the AM. she is able to ambulate to the restroom with minimal SOB. OB - PN: Obj Data Labs CBC & Chem 7: 12/28/19 05:35 12/29/19 05:40 Labs: Laboratory Results - last 24 hr 12/28/19 12/28/19 12/28/19 05:31 05:35 05:35 Sodium Chloride Carbon Dioxide BUN Creatinine Estim Creat Clear Calc Estimated GFR Glucose Calcium Vitamin B12 274.0 Folate > 20.0 H Stl Occult Blood (IFOB) Digoxin 0.6 L STEPHANY, IgG Interpret Negative STEPHANY, Poly Interpret Negative STEPHANY, Complement Interp Negative 12/28/19 12/29/19 11:05 05:40 Sodium 134 L Chloride 106 Carbon Dioxide 21 L BUN 4 L Creatinine 0.60 L Estim Creat Clear Calc 139 Estimated GFR > 60 Glucose 76 Calcium 8.5 Vitamin B12 Folate Stl Occult Blood (IFOB) Negative Digoxin STEPHANY, IgG Interpret STEPHANY, Poly Interpret STEPHANY, Complement Interp OB - PN A/P Assessment and Plan (1) Hypomagnesemia: Code(s): E83.42 - Hypomagnesemia Status: Acute Assessment and Plan: continue to replace will recheck value (2) induced hypertension: Code(s): O13.9 - Gestational [-induced] hypertension without significant proteinuria, unspecified trimester Status: Acute Assessment and Plan: pt with labile BP neg for PreE symptoms PreE labs wnl will collecte 24 hr urine protein outpatient (3) Peripartum cardiomyopathy: Code(s): O90.3 - Peripartum cardiomyopathy Status: Acute Assessment and Plan: BNP 1750 cardiology consulted, appreciate recs continue metorpolol continue digoxin continue daily lasix at this time tachycardia improving (4) Anemia: Code(s): D64.9 - Anemia, unspecified Status: Acute Assessment and Plan: Hg 8.5 contiue iron supplementation (5) Twin gestation in third trimester: Code(s): O30.003 - Twin , unspecified number of placenta and unspecified number of amniotic sacs, third trimester Status: Acute Assessment and Plan: NSTs have been reactive continue daily NST (6) Community acquired pneumonia: Qualifiers: Laterality: unspecified laterality Qualified Code(s): J18.9 - Pneumonia, unspecified organism Code(s): J18.9 - Pneumonia, unspecified organism Status: Acute Assessment and Plan: pt reports symptoms improving WBC decreased yesterday continue abx regimen will transition to PO on d/c (7) Acute hypokalemia: Code(s): E87.6 - Hypokalemia Status: Acute Assessment and Plan: repeat K+ pending continue replacement Time Spent With Patient Time: Total time spent is greater than 50% in coordination of care (as documented) at patient's floor/unit and/or counseling patient: Exam Const: General: comfortable and no acute distress Resp: Effort & Inspection: abnormal respiratory pattern Auscultation: rales Cardio: Rate: tachycardic GI: Auscultation: normal bowel sounds Other: gravid Urinary Catheter: Urinary Catheter: urine clear Psych: Appearance: grossly normal and well kempt
[2019-12-29 07:58] LABS: Potassium 3.4 mmol/L (3.4-5.0)
[2019-12-29 08:02] LABS: Basophils Percent Auto 0.3 % (0.2-1.2); Eosinophils Absolute Auto 0.2 K/mm3 (0-0.3); Eosinophils Percent Auto 1.7 % (0-4.4); Hematocrit 25.2 % (37.0-47.0); Hemoglobin 8.5 g/dL (12.0-15.0); Immature Granulocyte Percent A 0.8 % (0-0.5); Lymphocytes Absolute Auto 2.68 K/mm3 (0.9-3.2); Lymphocytes Percent Auto 20.3 % (18.3-44.2); Mean Corpuscular HGB Conc 33.7 g/dl (32-36); Mean Corpuscular Hemoglobin 30.4 pg (26-34); Mean Platelet Volume 11.3 fl (7.4-10.4); Monocytes Percent Auto 7.7 % (2.6-8.5); Neutrophils Absolute Auto 9.1 K/mm3 (1.3-6.7); Neutrophils Percent Auto 69.2 % (45.5-73.1); Platelet Count Result 176 k/mm3 (150-375); Red Cell Distribution Width 14.4 % (11.5-14.5); White Blood Count 13.2 K/mm3 (4.5-10.0)
[2019-12-29] MEDS: ONDANSETRON INJ 4 MG/2 ML VIAL IV PUSH ×2 (08:08→17:42)
[2019-12-29] MEDS: POTASSIUM CHLORIDE 20 MEQ TABLET PO (08:08)
[2019-12-29] MEDS: METOPROLOL SUCCINATE EXT REL 50 MG TABCR PO (08:09)
[2019-12-29] MEDS: MULTIVIT/MIN/PREN/FOL AC/IRON TABLET 1 TAB PO (08:09)
[2019-12-29] MEDS: FAMOTIDINE 10 MG TABLET PO ×2 (08:09→17:42)
[2019-12-29] MEDS: MAGNESIUM OXIDE 400 MG TABLET PO ×2 (08:09→17:42)
[2019-12-29] MEDS: FERROUS GLUCONATE 324 MG TABLET PO ×2 (08:09→17:42)
[2019-12-29] MEDS: LORATADINE 10 MG TABLET PO (08:09)
[2019-12-29] MEDS: FUROSEMIDE 40 MG TABLET PO (08:09)
[2019-12-29] MEDS: DIGOXIN TAB 125 MCG TABLET PO (08:10)
--- NOTE | 2019-12-29 11:17 | PM.PNCARD ---
Progress Note: A&P Assessment and Plan (1) Peripartum cardiomyopathy: Code(s): O90.3 - Peripartum cardiomyopathy Status: Acute Assessment and Plan: Presented with with significant MACEDO, orthopnea, pleural effusions and elevated BNP. Echocardiogram showed some mild LV enlargement with moderate hypokinesis, EF 40-47%. She appears to have a peripartum cardiomyopathy and is volume overloaded. Continue metoprolol succinate Continue 0.125 mg p.o. daily (might increase to 0.25 mcg qd when off azithromycin) Continue Lasix 40 mg p.o. daily. Plan is to reduce the dose or eliminate it eventually. Low-salt diet. Limiting sodium to 2000 mg per day. Dietitian has seen her. Continue fluids restriction to 2 L but no more than 3 L per day. Office follow-up in the near future; might need hydralazine/nitrates depending on her course Likely she will not be able to return to work until after delivery She and her mother are concerned about desaturations during the night. Reports that she needed oxygen overnight. There is no documentation of these desaturations in the vital sign record. On review of telemetry some of the oxygen desaturations are noted to not have appropriate pleth waveforms. Will need further investigation of self reported desaturations. (2) induced hypertension: Code(s): O13.9 - Gestational [-induced] hypertension without significant proteinuria, unspecified trimester Status: Acute Assessment and Plan: Blood pressure improved. Continue Metoprolol as above. (3) Inappropriate sinus tachycardia: Code(s): R00.0 - Tachycardia, unspecified Status: Chronic Assessment and Plan: History of inappropriate sinus tachycardia noted in the past, aggravated by and cardiomyopathy Heart rate improved with Metoprolol (4) Twin gestation in third trimester: Code(s): O30.003 - Twin , unspecified number of placenta and unspecified number of amniotic sacs, third trimester Status: Acute Assessment and Plan: Management per (5) Acute hypokalemia: Code(s): E87.6 - Hypokalemia Status: Acute Assessment and Plan: Continue to supplement (6) Community acquired pneumonia: Qualifiers: Laterality: unspecified laterality Qualified Code(s): J18.9 - Pneumonia, unspecified organism Code(s): J18.9 - Pneumonia, unspecified organism Status: Acute Assessment and Plan: Antibiotics (7) Hypomagnesemia: Code(s): E83.42 - Hypomagnesemia Status: Acute Assessment and Plan: Continue to supplement Recheck magnesium as above. Reports that she is having loose stools which may be from the magnesium oxide. Will recheck this morning. May need IV supplementation. 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 Would like to keep her 1 more night to further evaluate oxygen desaturations. Plan discussed with Dr. Ferrari [id number] 12/29/2019 Time Spent With Patient Time: Greater than 50% of this visit spent in counseling with her and her mother regarding sodium restriction, fluid restriction, activity restriction, if volume overload and cardiomyopathy is all related to . Time with patient: 15 - 25 minutes Subjective Date/time seen: 12/29/19 11:17 Interval history: Follow up for: 33w with twin gestation with community acquired pneumonia, peripartum cardiomyopathy, inappropriate sinus tachycardia. Date of service: 12/29/2019 Subjective: No chest discomfort. Has some discomfort in the right abdomen. Dr. Barnes is aware of this discomfort. Short of breath with exertional activities but this is improved. No lightheadedness or palpi
[2019-12-29 12:52] LABS: Digoxin 0.8 ng/mL (0.8-2.0)
[2019-12-29 13:21] LABS: Magnesium 1.6 mg/dL (1.6-2.3)
[2019-12-29] MEDS: MAGNESIUM SULF 2 GM/WATER 50ML 2 GM/50 ML BAG IVPB (14:50)
[2019-12-30] VITALS (12 sets, daily range): BP systolic 141–150; BP diastolic 82–97; PULSE 102–124; RESP 18–22; TEMP 36.9–37.1; O2SAT 97–99
--- NOTE | 2019-12-30 02:33 | PC.NURSE ---
FHTs doppled. FHT of baby A were 145-150, FHT of baby B 155-160. Patient denies any cramping, contractions or tightening of abdomen.
[2019-12-30 06:12] LABS: Blood Urea Nitrogen 3 mg/dL (7-17); Calcium 8.6 mg/dL (8.4-10.2); Carbon Dioxide 24 mmol/L (22-30); Chloride 108 mmol/L (98-107); Estimated CRCL calculation 139 ml/min; Estimated Glomerular Filt Rate > 60; Glucose 73 mg/dL (65-105); Magnesium 1.9 mg/dL (1.6-2.3); Potassium 3.6 mmol/L (3.4-5.0); Sodium 134 mmol/L (137-145)
--- NOTE | 2019-12-30 07:52 | PM.OBPNVD ---
OB - PN: Subj Subjective Date/time seen: 12/30/19 07:52 Interval history: 29 yo G1 at 33w twin gestation admitted for community acquired pneumonia and peripartum cardiomyopathy. pt states her symptoms are improving. She still has a cough and MACEDO. Pt had a sleep apnea study last night. She did not require oxygen last night but attributes that to the study. She had some nausea but that is not new for her. She reports some mild contractions yesterday. She endorses good movement. OB - PN: Obj Data Labs CBC & Chem 7: 12/29/19 05:37 12/30/19 05:37 Labs: Laboratory Results - last 24 hr 12/29/19 12/29/19 12/29/19 05:37 05:40 11:47 WBC 13.2 H RBC 2.80 L Hgb 8.5 L Hct 25.2 L MCV 90.0 MCH 30.4 MCHC 33.7 RDW 14.4 Plt Count 176 MPV 11.3 H Immature Gran % (Auto) 0.8 H Neut % (Auto) 69.2 Lymph % (Auto) 20.3 [place] % (Auto) 7.7 Eos % (Auto) 1.7 Baso % (Auto) 0.3 Lymph # (Auto) 2.68 [place] # (Auto) 1.0 H Eos # (Auto) 0.2 Baso # (Auto) 0.0 Abs Immat Gran (auto) 0.10 H Absolute Neuts (auto) 9.1 H Absolute Nucleated RBC 0.0 Nucleated RBC % 0.0 Sodium Potassium 3.4 Chloride Carbon Dioxide BUN Creatinine Estim Creat Clear Calc Estimated GFR Glucose Calcium Magnesium 1.6 Digoxin 12/29/19 12/30/19 11:51 05:37 WBC RBC Hgb Hct MCV MCH MCHC RDW Plt Count MPV Immature Gran % (Auto) Neut % (Auto) Lymph % (Auto) [place] % (Auto) Eos % (Auto) Baso % (Auto) Lymph # (Auto) [place] # (Auto) Eos # (Auto) Baso # (Auto) Abs Immat Gran (auto) Absolute Neuts (auto) Absolute Nucleated RBC Nucleated RBC % Sodium 134 L Potassium 3.6 Chloride 108 H Carbon Dioxide 24 BUN 3 L Creatinine 0.60 L Estim Creat Clear Calc 139 Estimated GFR > 60 Glucose 73 Calcium 8.6 Magnesium 1.9 Digoxin 0.8 OB - PN A/P Assessment and Plan (1) induced hypertension: Code(s): O13.9 - Gestational [-induced] hypertension without significant proteinuria, unspecified trimester Status: Acute Assessment and Plan: BP remain labile, no severe range BP continue to monitor. will collect 24 hr urine protein outpatient (2) Peripartum cardiomyopathy: Code(s): O90.3 - Peripartum cardiomyopathy Status: Acute (3) Anemia: Code(s): D64.9 - Anemia, unspecified Status: Acute Assessment and Plan: pt still reports MACEDO pt underwent apnea sleep study last night cards to evaluate study and determine need for home oxygen appreciate card recs will continue digoxin will continue metoprolol will continue lasix (4) Inappropriate sinus tachycardia: Code(s): R00.0 - Tachycardia, unspecified Status: Chronic Assessment and Plan: still tachycardic but improved with metoprolol (5) Twin gestation in third trimester: Code(s): O30.003 - Twin , unspecified number of placenta and unspecified number of amniotic sacs, third trimester Status: Acute Assessment and Plan: NST reactive so far continue twice daily monitoring and daily NST (6) Community acquired pneumonia: Qualifiers: Laterality: unspecified laterality Qualified Code(s): J18.9 - Pneumonia, unspecified organism Code(s): J18.9 - Pneumonia, unspecified organism Status: Acute Assessment and Plan: WBC trending down continue abx will transition to PO on D/C Time Spent With Patient Time: Total time spent is greater than 50% in coordination of care (as documented) at patient's floor/unit and/or counseling patient: Review of Systems Review of Systems: All systems reviewed & are unremarkable except as noted in HPI and below Exam Const: General: comfortable and no acute distress Resp: Effort & Inspection: normal respiratory effort Auscultation: clear to aus
[2019-12-30] MEDS: POTASSIUM CHLORIDE 20 MEQ TABLET PO (08:13)
[2019-12-30] MEDS: ONDANSETRON INJ 4 MG/2 ML VIAL IV PUSH (08:13)
[2019-12-30] MEDS: FERROUS GLUCONATE 324 MG TABLET PO (08:13)
[2019-12-30] MEDS: FAMOTIDINE 10 MG TABLET PO (08:13)
[2019-12-30] MEDS: DIGOXIN TAB 125 MCG TABLET PO (08:13)
[2019-12-30] MEDS: LORATADINE 10 MG TABLET PO (08:14)
[2019-12-30] MEDS: FUROSEMIDE 40 MG TABLET PO (08:14)
[2019-12-30] MEDS: MULTIVIT/MIN/PREN/FOL AC/IRON TABLET 1 TAB PO (08:14)
[2019-12-30] MEDS: METOPROLOL SUCCINATE EXT REL 50 MG TABCR PO (08:14)
[2019-12-30] MEDS: MAGNESIUM OXIDE 400 MG TABLET PO (08:14)
[2019-12-30] MEDS: IPRATROPIUM BR 0.02% INH SOLN 0.5 MG/2.5 ML VIAL INHALATION (08:49)
--- NOTE | 2019-12-30 09:48 | PM.PNCARD ---
Progress Note: A&P Assessment and Plan (1) Peripartum cardiomyopathy: Code(s): O90.3 - Peripartum cardiomyopathy Status: Acute Assessment and Plan: Presented with with significant MACEDO, orthopnea, pleural effusions and elevated BNP. Echocardiogram showed some mild LV enlargement with moderate hypokinesis, EF 40-47%. Patient gives history of what sounded to be inappropriate sinus tachycardia. Now she is found to have LV systolic dysfunction. The possible etiologies for LV dysfunction include tachycardia induced cardiomyopathy, or peripartum cardiomyopathy. -I spoke at length with the patient about her clinical condition and possible etiologies. An accurate diagnosis of patient's cardiomyopathy would be more relevant in this particular case if patient is planning to have more children in future. Patient stated that she does not plan to have more children in the future. In any case, her heart rate will need to be controlled and she will need to be on standard treatment for CHF with reduced ejection fraction. Continue metoprolol succinate Continue 0.125 mg p.o. daily (might increase to 0.25 mcg qd when off azithromycin) Continue Lasix 40 mg p.o. daily. Plan is to reduce the dose or eliminate it eventually. Low-salt diet. Limiting sodium to 2000 mg per day. Dietitian has seen her. Continue fluids restriction to 2 L but no more than 3 L per day. Office follow-up in the near future; might need hydralazine/nitrates depending on her course Likely she will not be able to return to work until after delivery Awaiting apnea link results. Management as per primary team. Patient advised to follow up with Cardiology within 1 week. She is also advised to follow-up with her OBGYN on the regular basis. She may need to be managed at tertiary care center in her peripartum period. (2) induced hypertension: Code(s): O13.9 - Gestational [-induced] hypertension without significant proteinuria, unspecified trimester Status: Acute Assessment and Plan: Blood pressure improved. Continue Metoprolol as above. (3) Inappropriate sinus tachycardia: Code(s): R00.0 - Tachycardia, unspecified Status: Chronic Assessment and Plan: History of inappropriate sinus tachycardia noted in the past, aggravated by and cardiomyopathy Heart rate improved with Metoprolol (4) Twin gestation in third trimester: Code(s): O30.003 - Twin , unspecified number of placenta and unspecified number of amniotic sacs, third trimester Status: Acute Assessment and Plan: Management per (5) Acute hypokalemia: Code(s): E87.6 - Hypokalemia Status: Acute Assessment and Plan: Continue to supplement (6) Community acquired pneumonia: Qualifiers: Laterality: unspecified laterality Qualified Code(s): J18.9 - Pneumonia, unspecified organism Code(s): J18.9 - Pneumonia, unspecified organism Status: Acute Assessment and Plan: Antibiotics (7) Hypomagnesemia: Code(s): E83.42 - Hypomagnesemia Status: Acute Assessment and Plan: Continue to supplement Supplement magnesium as needed Additional Plan 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 Subjective Date/time seen: 12/30/19 09:48 Date of service: 12/30/2019 Chief complaint: Shortness of breath Patient reports some improvement in her shortness of breath. No chest pain. Her lower extremity swelling is improving with diuresis. On telemetry, she has been in sinus tachycardia with heart rates in 100s to 110s. Exam Const: General: cooperative, comfortable and no acute distress Orientation/consciousness
--- NOTE | 2019-12-30 12:56 | PM.DS ---
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.3 - Peripartum cardiomyopathy Status: Acute (2) induced hypertension: Code(s): O13.9 - Gestational [-induced] hypertension without significant proteinuria, unspecified trimester Status: Acute (3) Community acquired pneumonia: Qualifiers: Laterality: unspecified laterality Qualified Code(s): J18.9 - Pneumonia, unspecified organism Code(s): J18.9 - Pneumonia, unspecified organism Status: Acute (4) Twin gestation in third trimester: Code(s): O30.003 - Twin , unspecified number of placenta and unspecified number of amniotic sacs, third trimester Status: Acute DS: Summary Hospital Course Reason for hospitalization: SOB and fever Hospital Course: 29 yo at 33w with twin gestation presented to the hospital with acute onset SOB and general malaise. She was found to have a fever at the hospital. Initial work up showed bilateral pulmonary effusions and consolidations. BNP levels were also found to be elevated. Pt history complicated by inappropriate sinus tachycardia. ECHO showed an EF of 47%. Hospitalist and cardiology services were consulted. Pt was managed with antibiotic therapy for suspected community acquired pneumonia. Pt heart rate and cardiomyopathy were managed with metorpolol, digoxin and lasix. Pt was found to have a oxygen requirement and was set up for home O2. Status at Discharge Overall status at discharge: patient is progressing back to baseline Time Spent with Patient Time attestation: Total time spent providing and/or coordinating discharge services: Exam Const: General: no acute distress Resp: Effort & Inspection: abnormal respiratory effort Auscultation: clear to auscultation bilaterally and diminished lung sounds Cardio: Rate: tachycardic GI: Inspection: non-distended GI Palp: Yes Soft to palpation and No Tenderness to palpation present (GI) Auscultation: normal bowel sounds Other: Gravid Skin: General skin exam: normal color Extrem: General: normal to inspection DS: Data Data Completed and Pending Labs on day of discharge: Labs from last 24 hours 12/30/19 12/29/19 05:37 11:47 Sodium 134 L Potassium 3.6 Chloride 108 H Carbon Dioxide 24 BUN 3 L Creatinine 0.60 L Estim Creat Clear Calc 139 Estimated GFR > 60 Glucose 73 Calcium 8.6 Magnesium 1.9 1.6 Preliminary micro results at discharge 12/26/19 23:07 Blood Culture - Preliminary Blood 12/26/19 23:07 Blood Culture - Preliminary Blood Discharge Plan Discharge Consulting providers: Farrah Olivier Discharging Clinician: Donald Barnes Patient Disposition: Home, Self-Care Activity: no straining and as tolerated Diet: low sodium Discharge Instructions: monitor SpO2% at home, recommend maintaining SpO2% >94% during . Call or return for worsening symptoms. Patient Instructions: Pneumonia (DC), Antibiotic Form Stand Alone Forms: General Discharge Information Follow-up/Referrals: Farrah Olivier MD [Physician] - Donald Barnes MD [Physician] - Discharge Medications: New furosemide 40 mg Tablet 40 mg PO DAILY Qty: 30 RF: 0 amoxicillin 500 mg capsule 1,000 mg PO TID 5 Days Qty: 30 RF: 0 levalbuterol HCl 1.25 mg/0.5 mL Solution For Nebulization 1.25 mg inhalation Q6HRT Qty: 15 RF: 0 metoprolol succinate 50 mg Tablet Extended Release 24 Hr 50 mg PO QAM Qty: 30 RF: 0 digoxin 125 mcg (0.125 mg) Tablet 125 mcg PO QAM Qty: 30 RF: 0 azithromycin 500 mg tablet 500 mg PO DAILY 3 Days Qty: 3 RF: 0 Continued famotidine [Heartburn Relief (famotidine)] 10 mg tablet 10 mg PO BID RF: 0 cetirizine [Zyrtec] 10 mg Tablet 10 mg PO DAILY RF: 0 ondansetron 4 mg tablet,disintegrating
--- NOTE | 2019-12-30 13:14 | PCRCNOTE ---
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 PT WILL BE SET UP WITH EQUIPMENT AT HOME WITH [facility]. I WILL GIVE PT A [facility] INFO/# PRIOR TO D/C.
== END 2019-12-30 17:10 | disposition short-term general hospital (02) | DRG 831 ==
LOC: ANHED 19:36 → ANH3MEDSUR 23:00
PROVIDERS: Internal Medicine Cardiovascular Disease; Nurse Practitioner; Nurse Practitioner Adult Health; Admitting Provider Student in an Organized Health Care Education/Training Program; Emergency Provider Emergency Medicine; PCP Family Medicine; Visit Provider Student in an Organized Health Care Education/Training Program
DX: O99.513 Diseases of the respiratory system complicating pregnancy, third trimester (principal); J18.9 Pneumonia, unspecified organism; Z3A.30 30 weeks gestation of pregnancy; O13.3 Gestational [pregnancy-induced] hypertension without significant proteinuria, third trimester; E87.6 Hypokalemia; D64.9 Anemia, unspecified; O99.013 Anemia complicating pregnancy, third trimester; O30.003 Twin pregnancy, unspecified number of placenta and unspecified number of amniotic sacs, third trimester; R79.89 Other specified abnormal findings of blood chemistry; R00.0 Tachycardia, unspecified; O90.3 Peripartum cardiomyopathy; E87.70 Fluid overload, unspecified; E83.42 Hypomagnesemia
CPT/HCPCS: 36415; 59025; 71046; 71275; 80048; 80053; 80162; 81001; 82274; 82607; 82728; 82746; 83540; 83550; 83735; 83880; 84443; 85025; 85046; 85610; 85730; 86880; 87040; 87070; 87205; 87420; 87804; 93306; 94640; 94762; 96365; 96366; 96367; 96368; 96374; 99285; A9270; J0131; J0456; J0696; J1160; J2405; J3475; J3480; J7030; J7120; Q9967

== ENCOUNTER 2022-10-10 09:32 | Outpatient (CLI) | payer OTHER, SELFPAY ==
[2022-10-10 11:04] LABS: Basophils Absolute Auto 0.1 K/mm3 (0.0-0.1); Eosinophils Absolute Auto 0.5 K/mm3 (0-0.3); Eosinophils Percent Auto 5.9 % (0-4.4); Hematocrit 37.7 % (37.0-47.0); Hemoglobin 12.7 g/dL (12.0-15.0); Immature Granulocyte Absolute 0.03 K/mm3 (0.00-0.031); Immature Granulocyte Percent A 0.3 % (0-0.5); Lymphocytes Absolute Auto 4.17 K/mm3 (0.9-3.2); Lymphocytes Percent Auto 45.5 % (18.3-44.2); Mean Corpuscular HGB Conc 33.7 g/dl (32-36); Mean Corpuscular Hemoglobin 30.4 pg (26-34); Mean Corpuscular Volume 90.2 fl (80-100); Mean Platelet Volume 9.9 fl (7.4-10.4); Monocytes Absolute Auto 0.5 K/mm3 (0.1-0.6); Monocytes Percent Auto 5.6 % (2.6-8.5); Neutrophils Absolute Auto 3.8 K/mm3 (1.3-6.7); Neutrophils Percent Auto 41.7 % (45.5-73.1); Platelet Count Result 304 k/mm3 (150-375); Red Blood Count 4.18 M/mm3 (4.2-5.4); Red Cell Distribution Width 12.3 % (11.5-14.5); White Blood Count 9.2 K/mm3 (4.5-10.0)
== END 2022-10-10 09:33 | disposition home or self-care (01) ==
PROVIDERS: Visit Provider Obstetrics & Gynecology
DX: Z01.818 Encounter for other preprocedural examination (principal); N92.0 Excessive and frequent menstruation with regular cycle
CPT/HCPCS: 36415; 85025; 86850; 86900; 86901

== ENCOUNTER 2022-10-20 00:18 | Day surgery (SDC) | payer OTHER, SELFPAY ==
--- NOTE | 2022-10-04 13:57 | SUR.PREOP ---
Report to the Outpatient Waiting Room, entrance under the green pavilion located off [facility], at time 0600 on date 10/20/22. Planned Procedure Time: 0730. Time changes happen often and if your time is changed the preop area will call you the afternoon before. - You and your visitor will be asked to self-screen and do not enter if you have any COVID symptoms. - Only one visitor is requested with a max of two and NO children visitors are allowed at this time. - The patient visitor may be requested to leave or wait in car when not with patient due to distancing restrictions. - A mask is optional within the hospital. Patients may have clear liquids (water, carbonated beverages, clear teas, apple juice) until 3 hours prior to surgery with a maximum of 20 ounces. - NO CLEAR LIQUIDS AFTER 0430 - No food from midnight until time of surgery - Infants may have breast milk until 4 hours before surgery, infant formula 6 hours prior to surgery. - Children will be allowed to drink immediately following surgery. If applicable, please bring a bottle or sippy cup to assist with drinking. Juice, water, soda, and popsicles are readily available. For infants on formula, please bring formula the day of surgery. Pacifiers are allowed. Medications to discontinue per physician INSTRUCTED TO STOP TAKING MULTIVITAMIN 10/17/22 Please no make-up, nail tunisian, hairspray, perfume, deodorant, or body powder the day of surgery. No jewelry (including any body piercings) or valuables the day of surgery, leave them at home. Please take a shower or bath the night before, or the morning of, surgery with an antibacterial soap. Wear comfortable, loose fitting clothing. Children are encouraged to wear pajamas. - Jewelry must be removed prior to entering the operating room. Rings and piercings that are not removed may be cut off. - The hospital will not accept responsibility for valuables. - Please leave all valuables, including medications, at home the day of surgery. If you are going home after surgery, a licensed hammer driver must drive you home. - NO public transportation without another adult if you receive anesthesia. - We recommend that an adult stay with you for 24 hours following discharge. - We also recommend that you do not drive, make important decision, drink alcoholic beverages, or take any drugs that were not prescribed by your health care provider for at least 24 hours after your discharge time. For Pediatric surgeries, we recommend two adults accompany the child home. Follow any additional instructions given to you from your surgeon. If you or anyone in your household have experienced Covid symptoms in the past week, please notify your surgeon or the nurse liaison at the phone number below for possible testing. Telephone instructions given to CHANO POLANCO and asked if any additional questions and then verbalized understanding. Patient advised to call surgeon office or pre surgery nurse liaison [phone] if any additional questions.
[2022-10-04 14:12] VITALS: BMI 29.2
--- NOTE | 2022-10-18 07:45 | PM.IMHP ---
H&P: HPI History of Present Illness Date/Time: 10/18/22 07:45 Chief Complaint: 32-year-old female 2 para 2 who is admitted for robotic hysterectomy salpingectomy secondary to prolapse and history of endometriosis. She has had unrelenting pain and discomfort set with no relief with medical therapy. Risks and benefits reviewed including not exclusive of , aspiration pneumonia, bleeding, transfusion, perforation injury to bowel, bladder, ureters, or other internal organs with need for open laparotomy. She received the ACOG handout entitled hysterectomy as well as the de Carline handout. 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 She is to [place] who she desires to have her power of divorce attorney. She desires to be full. This is her 1st . Lifelong nonsmoker nondrinker. No illicit drugs Smoking status: Never smoker Alcohol intake: current Substance use: never Gender identity (if verbalized by the patient): Female Spiritual care concerns: No Agree to blood products: Yes Meds Home Medications and Allergies Home Medications Medication Instructions Recorded Confirmed Type multivitamin 1 tablet PO DAILY 11/25/21 10/04/22 History Allergies Allergy/AdvReac Type Severity Reaction Status Date / Time Penicillins Allergy Unknown Rash Verified 10/04/22 13:45 Pertussis Vaccines AdvReac Severe Fever Verified 10/04/22 13:45 Exam Const: General: cooperative, healthy appearing, comfortable and well groomed Nutritional Appearance: average body habitus Orientation/consciousness: oriented to person, oriented to place and oriented to time HENMT: Head: normal to inspection Resp: Effort & Inspection: normal respiratory effort Cardio: Rate: regular rate Rhythm: regular rhythm Heart sounds: S1 normal heart sound present and S2 normal heart sound present GI: Inspection: normal to inspection : External Female Exam: normal external appearance Speculum Exam - Vagina: normal appearance of the vagina Speculum Exam - Cervix: normal appearance of the cervix (Second-degree prolapse is present.) Bimanual exam- vagina & uterus: uterine size normal, Cervical tenderness present, enlarged and Uterus displaced Bimanual Exam- Adnexa, other: normal adnexae Assessment and Plan Assessment and plan (1) Pelvic pain: Code(s): R10.2 - Pelvic and perineal pain Status: Acute (2) Uterine prolapse: Code(s): N81.4 - Uterovaginal prolapse, unspecified Status: Acute Plan Robotic total vaginal hysterectomy bilateral salpingectomy
--- NOTE | 2022-10-19 10:21 | WPDANESEPPF ---
Anes - Initial Pre Proc Eval Procedure: Operation Date: 10/20/22 07:30 Proposed Procedures p Robotic Assisted Total Vaginal Hysterectomy with Bilateral Salpingectomy - Hugo Luciano MD Date/Time: 10/19/22 10:21 Surgeon: Hugo Luciano MD Pre Op Diagnosis: Uterine Prolapse, Heavy Bleed Patient Data Age: 32 Gender: F Height: 1.68 m Weight: 82 kg Allergies Allergy/AdvReac Type Severity Reaction Status Date / Time Penicillins Allergy Unknown Rash Verified 10/20/22 06:13 Pertussis Vaccines AdvReac Severe Fever Verified 10/20/22 06:13 Home Medications Medication Instructions Recorded Confirmed Type multivitamin 1 tablet PO DAILY 11/25/21 10/20/22 History hydrocodone 5 mg-acetaminophen 325 1 tablet PO Q4H PRN pain #30 tabs 10/20/22 Rx mg tablet Patient hx anesthesia problems: none Family hx anesthesia problems: none Results Review: All pre-operative results and documents have been reviewed as part of the pre-operative evaluation. [facility] Past Medical History Medical History (Updated 10/20/22 @ 06:14 by Hugo Luciano MD) Esophageal reflux Hyperemesis gravidarum Inappropriate sinus tachycardia Peripartum cardiomyopathy induced hypertension Surgical History Surgical History No significant past surgical history Family History Family History Grandparent Diabetes mellitus Family history of cardiovascular disease Father Family history of hypercholesterolemia Depression Hypertension Sibling Depression Other Family history of malignant neoplasm of breast Social History Social History Social History: 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 She is to [place] who she desires to have her power of trademark attorney. She desires to be full. This is her 1st . Lifelong nonsmoker nondrinker. No illicit drugs Smoking status: Never smoker Alcohol intake: current Substance use: never Living arrangements: with family Gender identity (if verbalized by the patient): Female Spiritual care concerns: No Agree to blood products: Yes Anes - Eval Final PreProcedure Day of Procedure 10/19/22 10:21 Patient weight: overweight Heart: regular rate and rhythm Lungs: clear to auscultation Airway: Mallampati scale class II Neurological: alert and oriented Last oral intake: >/= 8 hours ASA classification: II Emergent: no Anesthetic plan: proceed Anesthesia type and monitoring: general ETT and standard monitoring Results Review: All pre-operative results and documents have been reviewed as part of the pre-operative evaluation. Informed Consent: The patient's anesthetic plan and its attendant risks and benefits were discussed with the patient/family/POA. Questions were solicited and answers provided to the satisfaction of the patient/family/POA.
[2022-10-20] VITALS (13 sets, daily range): BP systolic 116–142; BP diastolic 60–99; PULSE 84–124; RESP 12–18; TEMP 36.3–37.2; O2SAT 96–100
--- NOTE | 2022-10-20 06:13 | WPDHPUPDATE1 ---
History and Physical Update Update Date/Time: 10/20/22 06:13 History and Physical has been reviewed, including an updated exam of the patient. There are NO changes in the patient's condition. Risks, benefits, and alternatives have been discussed and questions answered. Patient agrees to proceed with procedure.
[2022-10-20] MEDS: ACETAMINOPHEN 500 MG TABLET 1000 MG PO (06:31)
[2022-10-20] MEDS: LACTATED RINGERS 1,000 ML 30 ML IV CONT ×2 (06:50→09:06)
[2022-10-20] MEDS: KETOROLAC 15 MG/ML VIAL (*BKC) IV PUSH (06:50)
[2022-10-20] MEDS: ceFAZolin 2 GM/D5W 50 ML 2 GM/50 ML BAG IVPB (07:30)
--- NOTE | 2022-10-20 08:27 | P.OP_ITS ---
Procedure Note - Detailed Date of Procedure 10/20/22 Pre-op Diagnosis Uterine Prolapse, Heavy Bleed Post-op Diagnosis Same Procedure Performed Robotic total vaginal hysterectomy and bilateral salpingectomy Surgeon Hugo Luciano MD Anesthesia General Indications 32-year-old female was admitted for robotic hysterectomy bilateral secondary to uterus and pelvic pain Findings large uterus normal-appearing ovaries and tubes. Adhesions anteriorly from the omentum anterior Description of Procedure patient was prepped draped sterile fashion placed dorsal anesthesia weighted speculum placed posterior fornix. Anterior lip of the cervix grasped with single-tooth tenaculum. Uterus sounded to 11cm. Serial dilatation with fragmented dilators performed followed by passage of the number 10 SCOTT and the 3. Cold cup. Next the 16 [place] catheter was placed in bladder and instrument remaining instruments removed. The gloves were changed. A supraumbilical incision made the Veress needle passed in the. Abdomen filled with CO2 gas [id number]. The 8mm trocar advanced in the abdomen. Downside visualized with no injury seen. Patient placed in Trendelenburg and right left lateral quadrant incisions made. 8mm trocars advanced under direct visualization assuring no injury. Right upper quadrant incision made the 8mm trocar advanced under direct visualization assuring injury. The robot was docked. Attention was turned to the console. Adhesions were seen anteriorly blocking the view of the uterus this was omentum to the anterior abdominal this was sharply dissected using occasional cautery to vascular areas. Once this was clear the left round ligament was grasped, burned, cut. Anteriorly a bladder flap was formed by sharply dissecting the peritoneum and reflecting the bladder caudally to the opposite round ligament which was clamped, burned. Next the left fallopian tube was sharply dissected away from the ovarian complex left attached to the you origin. This was repeated to remove the tube the right. Next the utero-ovarian ligament on the left skeletonized to maintain the left ovary this was clamped, burned, cut the brought to level of previous cut. Retaining the right ovary utero-ovarian ligament right was skeletonized clamping burning cutting and bringing this to the previously cut round ligament. Next the cardinal broad ligaments on the left were skeletonized hugging the cervix and uterus clamping burning cutting and bringing this down to the level of the uterine vessels. Once these could be seen there were individually clamped,, cut. In like fashion the cardinal broad ligaments on right were serially skeletonized clamping burning cutting and hugging the uterine cervix until the uterine vessels could be seen on the right. These were individually clamped, burned, cut. At that point excellent blanching of the uterus was noted. A colpotomy incision was made in the cervix uterus and tubes removed through the vagina. The vagina then closed with continuous running 0V lock from lateral edge to lateral edge back to midline. Irrigation undertaken to clear and hemostasis was assured. All pedicles were clear the robot was undocked. The gas removed from the abdomen. The incisions closed with 4 Monocryl and glue the patient awakened. She went to recovery in satisfactory condition. All sponge, needle, instrument counts were correct. There were no immediate complications noted Estimated Blood Loss 25 Drains No Packing No Pathology Yes Complications No immediate complications Condition Stable Disposition PACU
[2022-10-20] MEDS: fentaNYL CITRATE INJ (*CRX) 100 MCG/2 ML VIAL 25 MCG IV PUSH ×4 (08:58→09:58)
[2022-10-20] MEDS: diphenhydrAMINE HCl INJ 50 MG/ML VIAL 12.5 MG IV PUSH (09:16)
[2022-10-20] MEDS: ONDANSETRON INJ 4 MG/2 ML VIAL IV PUSH (10:05)
[2022-10-20] MEDS: DEXTROSE 5%/LACTATED RINGERS 1,000 ML 125 ML IV CONT (10:43)
[2022-10-20] MEDS: SIMETHICONE 80 MG TAB.CHEW PO ×2 (14:15→20:10)
[2022-10-20] MEDS: KETOROLAC 30 MG/ML VIAL (*BKC) IV PUSH (14:19)
[2022-10-20] MEDS: DOCUSATE SODIUM 100 MG CAPSULE PO (20:10)
[2022-10-20] MEDS: IBUPROFEN 600 MG TABLET PO (20:11)
[2022-10-21 01:25] VITALS: BP 124/72; PULSE 82; RESP 18; TEMP 36.6; O2SAT 98
[2022-10-21 04:20] VITALS: BP 118/61; PULSE 100; RESP 18; TEMP 36.6; O2SAT 98
[2022-10-21] MEDS: IBUPROFEN 600 MG TABLET PO ×2 (04:21→12:00)
[2022-10-21] MEDS: SIMETHICONE 80 MG TAB.CHEW PO ×2 (04:22→10:19)
[2022-10-21 04:54] LABS: Basophils Absolute Auto 0.1 K/mm3 (0.0-0.1); Basophils Percent Auto 0.4 % (0.2-1.2); Eosinophils Absolute Auto 0.1 K/mm3 (0-0.3); Eosinophils Percent Auto 0.5 % (0-4.4); Hemoglobin 11.6 g/dL (12.0-15.0); Immature Granulocyte Absolute 0.08 K/mm3 (0.00-0.031); Immature Granulocyte Percent A 0.5 % (0-0.5); Lymphocytes Absolute Auto 3.84 K/mm3 (0.9-3.2); Lymphocytes Percent Auto 23.2 % (18.3-44.2); Mean Corpuscular HGB Conc 34.1 g/dl (32-36); Mean Corpuscular Hemoglobin 30.3 pg (26-34); Mean Corpuscular Volume 88.8 fl (80-100); Monocytes Absolute Auto 1.1 K/mm3 (0.1-0.6); Monocytes Percent Auto 6.5 % (2.6-8.5); Neutrophils Absolute Auto 11.4 K/mm3 (1.3-6.7); Neutrophils Percent Auto 68.9 % (45.5-73.1); Platelet Count Result 294 k/mm3 (150-375); Red Blood Count 3.83 M/mm3 (4.2-5.4); Red Cell Distribution Width 12.4 % (11.5-14.5); White Blood Count 16.6 K/mm3 (4.5-10.0)
--- NOTE | 2022-10-21 09:39 | PM.GYNPNOP ---
POSTAL WORKER - A/P Assessment and plan (1) Uterine prolapse: Code(s): N81.4 - Uterovaginal prolapse, unspecified Status: Acute Assessment and Plan: A: Prolapse and pain, s/p robotic assisted TVHBS, now POD1, doing well. P: Home to f/u 2 weeks. (2) Pelvic pain: Code(s): R10.2 - Pelvic and perineal pain Status: Acute Postoperative Procedures: Procedures Operation Date: 10/20/22 07:30 Actual Procedure Side Surgeon p Robotic Assisted Total Vaginal Hysterectomy with Bilateral Salpingectomy Bilateral Hugo Luciano MD Postoperative day: 1 Time Spent With Patient Time with patient: less than 15 minutes POSTAL WORKER- PN:Subj Post-Op Subjective Date/time seen: 10/21/22 09:39 Interval history: Pain OK. Tolerating diet. Voiding. Would like to go home. Exam Narrative: AVSS I/O OK ABD soft, nontender. Incisions c/d/i. EXT nontender POSTAL WORKER - PN: Obj Data Vital Signs Vital Signs: Vital Signs - 24 hr 10/20/22 09:40 10/20/22 09:55 10/20/22 10:10 Temperature 37.2 C Pulse Rate 93 91 96 Respiratory Rate 14 14 12 Blood Pressure 124/76 127/75 123/70 Pulse Oximetry 99 97 99 Oxygen Delivery Room Air Room Air Room Air 10/20/22 10:30 10/20/22 11:48 10/20/22 10:25 Temperature 36.9 C 36.9 C Pulse Rate 91 107 H 107 H Respiratory Rate 16 18 18 Blood Pressure 122/63 120/65 Pulse Oximetry 99 99 99 Oxygen Delivery Room Air 10/20/22 16:00 10/20/22 20:00 10/21/22 01:25 Temperature 36.9 C 36.8 C 36.6 C Pulse Rate 123 H 124 H 82 Respiratory Rate 14 18 18 Blood Pressure 142/77 H 132/60 124/72 Pulse Oximetry 96 97 98 Oxygen Delivery 10/21/22 04:20 Temperature 36.6 C Pulse Rate 100 Respiratory Rate 18 Blood Pressure 118/61 Pulse Oximetry 98 Oxygen Delivery Intake/Output Intake/Output: Intake & Output 10/18/22 10/19/22 10/20/22 10/21/22 23:59 23:59 23:59 23:59 Intake Total 2440 Output Total 1790 500 Balance 650 -500 Meds/Results Medications: Active Medications Generic Name Dose Route Start Last Admin Trade Name Freq PRN Reason Stop Dose Admin Acetaminophen 1,000 mg 10/20/22 14:20 Acetaminophen 500 Mg Tablet PO Q6H PRN Mild Pain (1-3) or Fever Hydrocodone Bitart/Acetaminophen 1 tab 10/20/22 10:15 Hydrocodone/Acetaminophen (*Crx) 10-325 Mg Tablet PO Q3H PRN Pain Rated 7 or Greater Hydrocodone Bitart/Acetaminophen 1 tab 10/20/22 14:35 Hydrocodone/Acetaminophen (*Crx) 5-325 Mg Tablet PO Q3HR PRN Pain Rated 4-6 Docusate Sodium 100 mg 10/20/22 10:15 10/20/22 20:10 Docusate Sodium 100 Mg Capsule PO 100 mg BID CHIN Administration Enoxaparin Sodium 40 mg 10/20/22 10:15 Enoxaparin 40 Mg/0.4 Ml Syringe SUB-Q DAILY CHIN Dextrose/Lactated Ringer's 1,000 mls @ 125 mls/hr 10/20/22 10:15 10/20/22 10:43 Dextrose 5%/Lactated Ringers IV CONT 125 mls/hr .Q8H CIHN Administration Ibuprofen 600 mg 10/20/22 10:15 10/21/22 04:21 Ibuprofen 600 Mg Tablet PO 600 mg Q6H PRN Administration Cramping Ketorolac Tromethamine 30 mg 10/20/22 10:15 10/20/22 14:19 Ketorolac 30 Mg/Ml Vial (*Bkc) IV PUSH 10/25/22 10:14 30 mg Q6H PRN Administration Pain Rated 4-6 Naloxone HCl 0.1 mg 10/20/22 10:15 Naloxone Hcl 0.4 Mg/Ml Vial IV PUSH Q2M PRN Respiratory rate less than 10 Ondansetron HCl 4 mg 10/20/22 10:15 Ondansetron Inj 4 Mg/2 Ml Vial IV PUSH Q6H PRN Nausea And Vomiting Simethicone 80 mg 10/20/22 10:15 10/21/22 04:22 Simethicone 80 Mg Tab.Chew PO 80 mg Q2H PRN Administration Gas Labs 10/21/22 04:30 Labs: Laboratory Results - last 24 hr 10/21/22 04:30 WBC 16.6 H RBC 3.83 L Hgb 11.6 L Hct 34.0 L MCV 88.8 MCH 30.3 MCHC 34.1 RDW 12.4 Plt Count 294 MPV 10.0 Immature Gran % (Auto) 0.5 Neut % (Auto) 68.9 Lymph % (Auto) 23.2 [place] % (Auto) 6.5 Eos % (Auto) 0.5 Baso % (Auto) 0
--- NOTE | 2022-10-21 09:40 | PM.DS ---
DS: Admitting Diagnosis Discharge Date 10/21/22 Admitting Diagnosis Pelvic pain Prolapse DS: Discharge Diagnosis Discharge Diagnosis (1) Uterine prolapse: Code(s): N81.4 - Uterovaginal prolapse, unspecified Status: Acute (2) Pelvic pain: Code(s): R10.2 - Pelvic and perineal pain Status: Acute DS: Summary Hospital Course Hospital Course: Admitted on date of scheduled surgery. Did well postoperatively and was sent home on POD#1. Time Spent with Patient Time attestation: Total time spent providing and/or coordinating discharge services: DS: Data Data Completed and Pending Pending studies at discharge: Pending at discharge 10/20/22 07:59 Surgical [PTH] Routine Labs on day of discharge: Labs from last 24 hours 10/21/22 04:30 WBC 16.6 H RBC 3.83 L Hgb 11.6 L Hct 34.0 L MCV 88.8 MCH 30.3 MCHC 34.1 RDW 12.4 Plt Count 294 MPV 10.0 Immature Gran % (Auto) 0.5 Neut % (Auto) 68.9 Lymph % (Auto) 23.2 [place] % (Auto) 6.5 Eos % (Auto) 0.5 Baso % (Auto) 0.4 Lymph # (Auto) 3.84 H [place] # (Auto) 1.1 H Eos # (Auto) 0.1 Baso # (Auto) 0.1 Abs Immat Gran (auto) 0.08 H Absolute Neuts (auto) 11.4 H Absolute Nucleated RBC 0.0 Nucleated RBC % 0.0 Discharge Plan Discharge Patient Disposition: Home, Self-Care Discharge Instructions: Nothing in vagina for six weeks. Call or return if temperature above 100.4? F, increased abdominal pain, increased vaginal bleeding or any new problems. Stand Alone Forms: General Discharge Instructions Follow-up/Referrals: Hugo Miller MD [Physician] - 2 Weeks Discharge Medications: New hydrocodone-acetaminophen 5-325 mg tablet 1 tablet PO Q4H PRN (Reason: pain) Qty: 30 0RF Continued multivitamin Tablet 1 tablet PO DAILY
[2022-10-21] MEDS: ACETAMINOPHEN 500 MG TABLET 1000 MG PO (10:17)
[2022-10-21 10:19] VITALS: BP 131/84; PULSE 111; RESP 18; TEMP 36.8; O2SAT 99
[2022-10-21] MEDS: DOCUSATE SODIUM 100 MG CAPSULE PO (10:19)
[2022-10-21] MEDS: ENOXAPARIN 40 MG/0.4 ML SYRINGE SUB-Q (10:20)
--- NOTE | 2022-10-21 10:56 | WPDANESPN ---
Anes - Prog Note Post-Op Date/Time: 10/21/22 10:56 Cardiovascular status: normal Respiratory status: normal Airway patency: baseline Mental status: baseline Post-Op hydration status: normal Vital Signs: Last Vital Signs Temp 36.6 C 10/21/22 04:20 Pulse 100 10/21/22 04:20 Resp 18 10/21/22 04:20 BP 118/61 10/21/22 04:20 Pulse Ox 98 10/21/22 04:20 O2 Del Method Room Air 10/20/22 10:25 O2 Flow Rate 6 10/20/22 09:10 Pain Score (VAS): 0 I/O: Intake & Output 10/20/22 10/21/22 10/21/22 23:59 07:59 15:59 Intake Total 1240 Output Total 1550 500 Balance -310 -500 Laboratory Tests 10/21/22 04:30 10/21/22 04:30 WBC 16.6 H RBC 3.83 L Hgb 11.6 L Hct 34.0 L MCV 88.8 MCH 30.3 MCHC 34.1 RDW 12.4 Plt Count 294 MPV 10.0 Immature Gran % (Auto) 0.5 Neut % (Auto) 68.9 Lymph % (Auto) 23.2 [place] % (Auto) 6.5 Eos % (Auto) 0.5 Baso % (Auto) 0.4 Lymph # (Auto) 3.84 H [place] # (Auto) 1.1 H Eos # (Auto) 0.1 Baso # (Auto) 0.1 Abs Immat Gran (auto) 0.08 H Absolute Neuts (auto) 11.4 H Absolute Nucleated RBC 0.0 Nucleated RBC % 0.0 Post-procedural complaints: none Patient Feedback: Patient satisfied with anesthetic care.
== END 2022-10-21 12:10 | disposition home or self-care (01) ==
LOC: ANHSURGERY 06:14 → ANHOB2 10:17
PROVIDERS: Visit Provider Obstetrics & Gynecology
PROC: (CPT 58552; principal; 2022-10-20 07:30)
DX: N81.4 Uterovaginal prolapse, unspecified (principal); N92.0 Excessive and frequent menstruation with regular cycle; R10.2 Pelvic and perineal pain; N73.6 Female pelvic peritoneal adhesions (postinfective); N72 Inflammatory disease of cervix uteri
CPT/HCPCS: 58552; S2900; 36415; 85025; 86850; 86900; 86901; 88307; 99199; A9270; J0330; J0690; J1100; J1170; J1200; J1650; J1885; J2250; J2405; J2704; J2710; J3010; J7030; J7120; J7121

== ENCOUNTER 2023-02-24 08:03 | Emergency (ER) | payer OTHER, SELFPAY ==
--- NOTE | 2023-02-24 08:04 | ED.URI ---
HPI - URI/Sore Throat General Chief Complaint: Upper Respiratory Infection Stated Complaint: DRAINAGE IN THROAT Time Seen by Provider: 02/24/23 08:04 Source: patient Mode of arrival: ambulatory Limitations: no limitations History of Present Illness HPI Narrative: Mary is a 32-year-old female patient presenting to the clinic today with complaints of sinus drainage/congestion x2-3 days. She reports she has also had fever, sore throat, body aches, and chills. States she has got a lot of drainage going into back of her throat. Highest fever was 102 MD elicited complaint: fever, cough, sore throat and nasal congestion Related Data Allergies Allergy/AdvReac Type Severity Reaction Status Date / Time Penicillins Allergy Unknown Rash Verified 02/24/23 08:15 Pertussis Vaccines AdvReac Severe Fever Verified 02/24/23 08:15 Review of Systems Review of Systems: Pertinent positives per HPI. Patient denies any rash, headache, visual changes, dizziness,shortness of breath, chest pain, palpitations, nausea, vomiting, diarrhea, constipation, abdominal pain, or any urinary issues. 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 She is to [place] who she desires to have her power of trade mark attorney. She desires to be full. This is her 1st . Lifelong nonsmoker nondrinker. No illicit drugs Smoking status: Never smoker Alcohol intake: current Substance use: never Living arrangements: with family Occupation/Education: occupation Gender identity (if verbalized by the patient): Female Spiritual care concerns: No Agree to blood products: Yes Comments At the time of my signature, I reviewed and agree with the nursing past medical, surgical, social, and family history. There is no relevant family history pertinent to the patient complaint. Exam Narrative: General: Well-developed, well nourished, in no apparent distress Head: Normocephalic, atraumatic Eyes: Pupils equally round and reactive to light bilaterally, EOM intact, sclera and conjunctive clear, no discharge, lids normal Ears: TMs intact and clear, ear canals clear, no drainage, grossly hearing normal. Nose: Nares patent, clear nasal discharge, no inflammation, no sinus tenderness. Mouth: Oral pharynx mildly red without lesions or masses, good dentition, MMM. Postnasal drip Neck: Supple, trachea midline, no enlargement of anterior or posterior cervical nodes, no thyroid masses or goiter palpable. Cardio: Regular rate and rhythm, s1 and s2 normal, no murmur appreciated. Resp: Clear to auscultation bilaterally, no rhonchi, rales, wheezing or rubs Course Course Emergency Course: Portions of this record may have been created with voice recognition software. Level of Care: Express Care Visit Vital Signs Vital signs: Vital signs reviewed MDM - URI/Sore Throat MDM Narrative Medical decision making narrative: At the time of visit patient is resting comfortably on exam table. Strep screen, COVID, and influenza testing was performed. Strep and COVID testing were negative. Influenza A test was positive. Discussed risk and benefits of Tamiflu and patient would like to get Ta
[2023-02-24 08:10] VITALS: BP 113/63; PULSE 105; RESP 16; TEMP 36.5; O2SAT 98
== END 2023-02-24 08:47 | disposition home or self-care (01) ==
PROVIDERS: Emergency Provider Nurse Practitioner Family; PCP Physician Assistant
DX: J10.1 Influenza due to other identified influenza virus with other respiratory manifestations (principal); Z20.822 Contact with and (suspected) exposure to COVID-19; K21.9 Gastro-esophageal reflux disease without esophagitis
CPT/HCPCS: 87081; 87426; 87804; 87880; 99213; C9803; G0463